=== PATIENT | male | born 1945 | race Caucasian/White ===

== ENCOUNTER 2020-05-05 08:39 | Outpatient (CLI) | payer BC, MEDICARE ==
--- NOTE | 2020-05-05 10:42 | ULT ---
EXAM: US Abdominal CLINICAL HISTORY: Low back pain. Possible kidney stone.. COMPARISON: None. FINDINGS: Pancreas: The head and body of the pancreas have a normal echotexture. The remainder the pancreas is obscured by bowel gas. IVC: Visualized IVC has a normal caliber. Aorta: Visualized aorta has a normal caliber. Liver:Normal hepatic parenchymal echotexture. No hepatic masses or intrahepatic biliary dilatation. T he contour of the hepatic margin is maintained. Right hepatic lobe measures 15.6 cm Gallbladder: No sonographic evidence of cholelithiasis, gallbladder wall thickening or pericholecysti c fluid. Sal's sign:Negative CBD: 0.75 cm common bile duct diameter. Portal vein: Patent. Appropriate directional flow. Right kidney: Normal cortical echotexture. No hydronephrosis Right kidney measuring 10.7 x 5.5 x 5. 7 cm in length. Exophytic cyst emanating from the upper pole the right kidney measures 4.4 x 4.4 x 4.7 cm. Left kidney: Normal cortical echotexture. No hydronephrosis. Calcification left renal cortex. Left kidney measuring 11.3 x 5.6 x 5.5 cm in length Spleen: Normal echotexture, measuring 10.8 cm in maximum dimension Incidental: Left pleural effusion IMPRESSION: 1. No sonographic evidence of cholelithiasis or cholecystitis 2. Common bile duct diameter acceptable for patient's age. 3. No evidence of hydronephrosis. 4. Exophytic cyst emanating from the upper pole of the right kidney. 5. Left pleural effusion.
== END 2020-05-05 08:40 | disposition home or self-care (01) ==
LOC: BICULT 08:39
PROVIDERS: ATTEND Internal Medicine
DX: M54.9 Dorsalgia, unspecified (principal); N28.1 Cyst of kidney, acquired; J90 Pleural effusion, not elsewhere classified
CPT/HCPCS: 93975

== ENCOUNTER 2020-05-10 11:30 | Outpatient (CLI) | payer BC, MEDICARE ==
--- NOTE | 2020-05-10 11:55 | RAD ---
PA AND LATERAL VIEWS CHEST: HISTORY: Left pleural effusion. Shortness of breath. FINDINGS: The heart size is normal. The aorta is tortuous. The right lung is clear. There is a moderate-size d left pleural effusion which may be loculated. No pneumothoraces are seen. IMPRESSION: Left pleural effusion. POS: AH
== END 2020-05-10 11:31 | disposition home or self-care (01) ==
LOC: BICRAD 11:30
PROVIDERS: ATTEND Internal Medicine
DX: J90 Pleural effusion, not elsewhere classified (principal)
CPT/HCPCS: 71046

== ENCOUNTER 2020-05-17 11:40 | Outpatient (CLI) | payer BC, MEDICARE ==
[~2020-05-17 11:40] MED LIST: Iopamidol 370 76% 100 ML VIAL ONE
--- NOTE | 2020-05-17 12:53 | CT ---
CHEST CT WITH CONTRAST: HISTORY: Abnormal ultrasound x-ray showed fluid in the left lung. Patient has a history of renal calculi. COMPARISON: None. CORRELATION: Stone CT 05/20/2010. FINDINGS: Lower neck and axilla: There is an incompletely evaluated hypodensity in the right thyroid lobe, edgard uring 1.2 cm. Mediastinum: No mass, lymphadenopathy or hematoma. Heart: Normal heart size. No significant epicardial fluid. Central pulmonary arteries: Adequate contrast opacification. No filling defects. Aorta: There is atherosclerosis of the aortic arch. Aorta has a normal caliber. No periaortic fat str anding. Subdiaphragmatic structures: There is a nonobstructing 2 mm calcification in the left intrarenal hubert ecting system. There appears to BE hyperplasia left adrenal gland, incompletely evaluated. There is exophytic hypodensity in the upper pole the left kidney with attenuation coefficient of 8 Hounsfield units suggesting a 5 cm cyst. Trachea and central bronchi: Patent. Pleural spaces: No right sided effusion. There is a loculated left subpulmonic pleural effusion, edgard uring 16.7 x 4.8 cm. There is atelectasis involving the left lower lobe, adjacent to the pleural effusion. Superimposed pneumonia and/or aspiration cannot be excluded. The remainder of the left lung is adequately aerated. There is adequate aeration of the right lung. Scattered emphysematous changes predominantly in the upper lobes are noted. There are no lytic or blastic lesions in the osseous structures. IMPRESSION: 1. Loculated subpulmonic effusion along the left pleural margin. There is consolidation of the left l ower lobe likely representing passive atelectasis. The possibility of superimposed aspiration and/or pneumonia cannot be entirely excluded. 2. Stable left adrenal hyperplasia. 3. Enlarging right renal cortical cyst. Transcribed Date/Time: 05/17/2020 1:13 PM
== END 2020-05-17 11:41 | disposition home or self-care (01) ==
LOC: CT 11:40
PROVIDERS: ATTEND Internal Medicine Pulmonary Disease
DX: J90 Pleural effusion, not elsewhere classified (principal); N28.1 Cyst of kidney, acquired; E27.8 Other specified disorders of adrenal gland; J18.1 Lobar pneumonia, unspecified organism
CPT/HCPCS: 71260; Q9967

== ENCOUNTER 2020-05-25 09:00 | Inpatient (IN) | payer BC, MEDICARE ==
[2020-05-26 07:23] LABS: SARS-CoV-2 PCR by NAA Not Detected (NotDetected)
[2020-05-30] MEDS ORDERED: HYDROmorphone 2 MG/ML VIAL ONE (07:47)
[2020-05-30] MEDS ORDERED: Ketamine 50 MG/ML (10ML VIAL) ONE (07:47)
[2020-05-30] MEDS ORDERED: Rocuronium Bromide 50 MG/5 ML VIAL ONE (07:48)
[2020-05-30] MEDS ORDERED: Midazolam HCl 2 mg/2 ml Vial ONE (07:48)
[2020-05-30] MEDS ORDERED: SUGAMMADEX SODIUM 200 MG/2 ML VIAL ONE (07:48)
[2020-05-30] MEDS ORDERED: Ropivacaine 0.2% HCl/PF 20 ML ONE (07:58)
[2020-05-30] MEDS ORDERED: Dexamethasone 20 MG/5 ML VIAL ONE (11:00)
[2020-05-30] MEDS ORDERED: Lidocaine 1% PF 5 ML VIAL ONE (11:00)
[2020-05-30] MEDS ORDERED: Rocuronium Bromide 10 MG/ML (10ML VIAL) ONE (11:00)
[2020-05-30] MEDS ORDERED: Succinylcholine 200 MG/10 ml SYRINGE FS ONE (11:00)
[2020-05-30] MEDS ORDERED: PROPOFOL 200 MG/20 ML VIAL ONE (11:00)
[2020-05-30] MEDS ORDERED: Promethazine HCl 25 MG/ML VIAL SLOW IVP PRN (11:09)
[2020-05-30] MEDS ORDERED: Ondansetron HCl/PF 4 MG/2 ML Vial IVP PRN (11:09)
[2020-05-30] MEDS ORDERED: Promethazine HCl 25 MG/ML VIAL IM PRN ×2 (11:09→11:15)
[2020-05-30] MEDS ORDERED: diphenhydrAMINE 25 MG CAP PO PRN (11:15)
[2020-05-30] MEDS ORDERED: diphenhydrAMINE 50 MG/ML VIAL IVP PRN (11:15)
[2020-05-30] MEDS ORDERED: Hydrocerin (Eucerin) Cream 120 gm Jar TOP PRN (11:15)
[2020-05-30] MEDS ORDERED: Naloxone HCl 0.4 mg/ml Vial IV PRN (11:15)
[2020-05-30] MEDS ORDERED: Bupivacaine 0.25% 10 ML VIAL EPIDURAL PRN (11:15)
[2020-05-30] MEDS ORDERED: HYDROcodone/Acetaminophen 5/325 mg Tablet PO PRN ×2 (11:15)
[2020-05-30] MEDS ORDERED: Ondansetron PF 4 MG/2 ML Vial IVP PRN (11:15)
[2020-05-30] MEDS ORDERED: Zolpidem Tartrate 5 MG TAB PO PRN (11:15)
[2020-05-30] MEDS ORDERED: Naloxone HCl 0.4 mg/ml Vial IVP PRN (11:15)
[2020-05-30] MEDS ORDERED: Promethazine HCl 25 MG SUPP PR PRN (11:15)
[2020-05-30] MEDS ORDERED: traMADol HCl 50 MG TAB PO PRN (11:15)
[2020-05-30] MEDS ORDERED: diphenhydrAMINE 50 MG/ML VIAL IM PRN (11:15)
[2020-05-30] MEDS ORDERED: Lidocaine 1.5% w/Epi 1:200K 30 ML VIAL (Epid Use) ONE (11:24)
[2020-05-30] MEDS ORDERED: Dextrose 5% in Water 1,000 ML IV PRN (15:20)
[2020-05-30] MEDS ORDERED: Dextrose 50% Abboject 50 ML SYRINGE SLOW IVP PRN (15:20)
[2020-05-30] MEDS ORDERED: Insulin Regular 300 UNITS/3 ML VIAL SC PRN (15:20)
[2020-05-30 15:21] VITALS: BMI 27.7
[2020-05-30] MEDS: Ketorolac Tromethamine 30 MG/ML VIAL IVP SCH ×3 (15:53→23:23)
[2020-05-30] MEDS: Lactated Ringer's 1,000 ML IV SCH ×2 (15:59→23:24)
[2020-05-30] MEDS: CEFAZOLIN 2 GM in Premix Bag 1 BAG IVPB SCH ×2 (15:59→23:24)
[2020-05-30] MEDS: Ondansetron PF 4 MG/2 ML Vial IVP PRN (17:02)
[2020-05-30] MEDS: Enoxaparin Sodium 40 MG/0.4 ML SYRINGE SC SCH (20:22)
[2020-05-31] MEDS: fentaNYL Citrate/PF 500 MCG, Bupivacaine 10 ML in Sodium Chloride 0.9% 80 ML EPIDURAL SCH ×2 (00:26→12:21)
[2020-05-31] MEDS: Ketorolac Tromethamine 30 MG/ML VIAL IVP SCH ×4 (05:27→23:16)
[2020-05-31 05:52] LABS: #Lymphocytes 1.4 thou/uL (1.20-3.40); #Monocytes 1.4 thou/uL (0.11-0.59); #Neutrophils 11.6 thou/uL (1.40-6.50); %Basophils 0.1 % (0.0-1.0); %Eosinophils 0.1 % (0.0-10.0); %Lymphocytes 9.7 % (21.0-51.0); %Monocytes 9.6 % (0.0-10.0); %Neutrophils 80.6 % (42.0-75.0); Hemoglobin 12.3 g/dL (14.0-18.0); Mean Corpuscular HGB CONC 31.5 g/dL (32.0-36.0); Mean Platelet Volume 8.1 fL (7.4-10.4); Platelet Count 304 thou/uL (130-400); RBC Distribution Width 12.5 % (11.5-14.5); Red Blood Cell (RBC) Count 4.25 mill/uL (4.70-6.10); White Blood Cell (WBC) Count 14.4 thou/uL (4.8-10.8)
[2020-05-31 06:10] LABS: Anion Gap 14 mmol/L (10-20); BUN (Urea Nitrogen) 23 mg/dL (8.4-25.7); Calc. Creatinine Clearance 99 mL/min (70-130); Calcium 8.2 mg/dL (7.8-10.44); Carbon Dioxide 23 mmol/L (23-31); Chloride 107 mmol/L (98-107); Glucose 124 mg/dL (83-110); Potassium 4.1 mmol/L (3.5-5.1); Sodium 140 mmol/L (136-145)
[2020-05-31] MEDS: CEFAZOLIN 2 GM in Premix Bag 1 BAG IVPB SCH (08:47)
[2020-05-31] MEDS ORDERED: Doxycycline 100 MG CAP PO SCH (10:00)
[2020-05-31] MEDS: Lactated Ringer's 1,000 ML IV SCH ×2 (12:28→15:15)
[2020-05-31] MEDS: Ondansetron PF 4 MG/2 ML Vial IVP PRN (15:14)
[2020-05-31] MEDS ORDERED: FLU VACC QS2020-21(65YR UP)/PF 240 MCG/0.7 ML SYRINGE IM ONE (16:15)
[2020-05-31] MEDS: Enoxaparin Sodium 40 MG/0.4 ML SYRINGE SC SCH (21:35)
[2020-05-31] MEDS: Doxycycline 100 MG CAP PO SCH (21:36)
[2020-06-01] MEDS: fentaNYL Citrate/PF 500 MCG, Bupivacaine 10 ML in Sodium Chloride 0.9% 80 ML EPIDURAL SCH (00:38)
[2020-06-01] MEDS: Ketorolac Tromethamine 30 MG/ML VIAL IVP SCH (05:23)
[2020-06-01] MEDS: Lactated Ringer's 1,000 ML IV SCH (06:07)
[2020-06-01] MEDS: Polyethylene Glycol 3350 17 GM Packet PO SCH (08:37)
[2020-06-01] MEDS: Doxycycline 100 MG CAP PO SCH ×2 (08:37→20:17)
[2020-06-01] MEDS: Bupivacaine 10 ML in Sodium Chloride 0.9% 90 ML EPIDURAL SCH (13:17)
[2020-06-01] MEDS ORDERED: Hydrochlorothiazide 25 MG TAB PO SCH (17:45)
[2020-06-01] MEDS ORDERED: Losartan 25 MG TAB PO SCH (17:45)
[2020-06-01] MEDS: Enoxaparin Sodium 40 MG/0.4 ML SYRINGE SC SCH (20:17)
[2020-06-01] MEDS: traMADol HCl 50 MG TAB PO PRN (21:54)
[2020-06-02] MEDS: Bupivacaine 10 ML in Sodium Chloride 0.9% 90 ML EPIDURAL SCH (03:29)
[2020-06-02] MEDS: traMADol HCl 50 MG TAB PO PRN ×3 (03:34→17:49)
[2020-06-02] MEDS: Doxycycline 100 MG CAP PO SCH ×2 (08:18→20:33)
[2020-06-02] MEDS: Losartan 25 MG TAB PO SCH (08:19)
[2020-06-02] MEDS: Hydrochlorothiazide 25 MG TAB PO SCH (08:19)
[2020-06-02] MEDS: Polyethylene Glycol 3350 17 GM Packet PO SCH (08:20)
[2020-06-02] MEDS ORDERED: HYDROCHLOROTHIAZIDE 12.5 MG TABLET PO SCH (09:00)
[2020-06-02] MEDS ORDERED: LOSARTAN 50 MG TABLET PO SCH (09:00)
[2020-06-02] MEDS: Acetaminophen 500 MG TAB PO PRN (14:29)
[2020-06-02] MEDS: Enoxaparin Sodium 40 MG/0.4 ML SYRINGE SC SCH (20:33)
[2020-06-03] MEDS: Acetaminophen 500 MG TAB PO PRN ×2 (00:14→14:24)
[2020-06-03 04:31] VITALS: TEMP 97.8
[2020-06-03] MEDS: traMADol HCl 50 MG TAB PO PRN ×2 (07:49→14:23)
[2020-06-03] MEDS: Losartan 25 MG TAB PO SCH (07:50)
[2020-06-03] MEDS: Hydrochlorothiazide 25 MG TAB PO SCH (07:50)
[2020-06-03] MEDS: Doxycycline 100 MG CAP PO SCH (07:50)
[2020-06-03] MEDS: Polyethylene Glycol 3350 17 GM Packet PO SCH (07:52)
[2020-06-03 16:07] VITALS: BP 168/82
== END 2020-06-03 17:06 | disposition home or self-care (01) | DRG 164 ==
LOC: SURG A 05-30 05:55 → EDSTATUS 05-30 09:00 → SURG A 05-30 15:08
PROVIDERS: ADMIT Thoracic Surgery (Cardiothoracic Vascular Surgery); ATTEND Thoracic Surgery (Cardiothoracic Vascular Surgery)
PROC: 0BNG0ZZ Release Left Upper Lung Lobe, Open Approach (ICD-10-PCS; principal; 2020-05-30)
PROC: 0W9B4ZZ Drainage of Left Pleural Cavity, Percutaneous Endoscopic Approach (ICD-10-PCS; 2020-05-30)
DX: J86.9 Pyothorax without fistula (principal); J91.8 Pleural effusion in other conditions classified elsewhere; Z20.822 Contact with and (suspected) exposure to COVID-19; R11.0 Nausea; Z28.21 Immunization not carried out because of patient refusal
CPT/HCPCS: 36415; 36416; 71045; 80048; 85025; 86850; 86900; 86901; 87070; 87106; 87205; 87635; J0690; J1100; J1170; J1650; J1885; J2001; J2250; J2405; J2704; J2795; J3010; J3490; U0003; U0005

== ENCOUNTER 2020-06-20 09:39 | Outpatient (CLI) | payer BC, MEDICARE ==
--- NOTE | 2020-06-20 10:05 | RAD ---
Frontal and lateral imaging chest: 06/20/2020 COMPARISON: 06/02/2020 HISTORY: Evaluate chest following thoracotomy FINDINGS: There is diffuse increased linear interstitial density within both lungs. The right lung ap pears clear. No pneumothorax is seen on either side. There is blunting of the costophrenic angle on the left with pleural thickening and/or small volume p leural fluid in the inferior lateral left hemithorax/left costophrenic angle, less conspicuous than on the 06/02/2020 exam. There is patchy opacity in the medial left base, similar when compared to the prior examination, and nonspecific. There is atherosclerotic calcification of the aortic arch. There is elevation of the right humeral head with remodeling of the undersurface of the acromion sugg esting right rotator cuff tear. IMPRESSION: Persistent patchy pleural and parenchymal opacity in the left base. No lobar consolidatio n or alveolar edema.
== END 2020-06-20 09:40 | disposition home or self-care (01) ==
LOC: BICRAD 09:39
PROVIDERS: ATTEND Thoracic Surgery (Cardiothoracic Vascular Surgery)
DX: J86.9 Pyothorax without fistula (principal); R91.8 Other nonspecific abnormal finding of lung field
CPT/HCPCS: 71046

== ENCOUNTER 2021-08-29 09:57 | Outpatient (CLI) | payer MEDICARE, BC | END 2021-08-29 09:58 | disposition home or self-care (01) | LOC: BICRAD 09:57 | PROVIDERS: ATTEND Internal Medicine | DX: R06.02 Shortness of breath (principal) | CPT/HCPCS: 71046 ==

== ENCOUNTER 2022-06-12 19:25 | Emergency (ER) | payer BC, MEDICARE ==
[2022-06-12] MEDS ORDERED: Ondansetron PF 4 MG/2 ML Vial ONE (20:39)
[2022-06-12] MEDS ORDERED: Fentanyl 100 MCG/2 ML VIAL ONE (20:39)
[2022-06-12] MEDS ORDERED: Ketorolac Tromethamine 30 MG/ML VIAL ONE (20:39)
[2022-06-12 22:01] LABS: #Eosinphils 0.2 thou/uL (0.0-0.7); #Lymphocytes 1.1 thou/uL (1.20-3.40); #Monocytes 0.8 thou/uL (0.11-0.59); #Neutrophils 8.6 thou/uL (1.40-6.50); %Basophils 0.4 % (0.0-1.0); %Eosinophils 1.4 % (0.0-10.0); %Lymphocytes 10.5 % (21.0-51.0); %Monocytes 7.2 % (0.0-10.0); %Neutrophils 80.4 % (42.0-75.0); Hemoglobin 13.2 g/dL (14.0-18.0); Mean Corpuscular HGB CONC 34.2 g/dL (32.0-36.0); Mean Corpuscular Hemoglobin 31.6 pg (27.0-31.0); Mean Corpuscular Volume 92.4 fl (78.0-98.0); Mean Platelet Volume 8.9 fL (7.4-10.4); Platelet Count 231 10x3/uL (130-400); RBC Distribution Width 12.3 % (11.5-14.5); Red Blood Cell (RBC) Count 4.17 mill/uL (4.70-6.10); White Blood Cell (WBC) Count 10.7 10x3/uL (4.8-10.8)
[2022-06-12 22:23] LABS: ALT (SGPT) 14 U/L (8-55); AST (SGOT) 20 U/L (5-34); Albumin 3.9 g/dL (3.4-4.8); Alkaline Phosphatase 55 U/L (40-110); Anion Gap 11 mmol/L (10-20); BUN (Urea Nitrogen) 18 mg/dL (8.4-25.7); Bilirubin, Total 0.3 mg/dL (0.2-1.2); CK (CPK) 71 U/L (30-200); Calc. Creatinine Clearance 0 mL/min (70-130); Calcium 8.5 mg/dL (7.8-10.44); Carbon Dioxide 21 mmol/L (23-31); Chloride 112 mmol/L (98-107); Estimated GFR 78; Globulin 2.7 g/dL (2.4-3.5); Glucose 133 mg/dL (83-110); Lipase 18 U/L (8-78); Potassium 3.6 mmol/L (3.5-5.1); Protein, Total 6.6 g/dL (5.8-8.1); Sodium 140 mmol/L (136-145)
[2022-06-12 22:30] LABS: Bacteria/HPF 3+ HPF (None Seen); Bilirubin Negative (Negative); Blood, Urine 3+ (Negative); Clarity Extra Turbid (Clear); Glucose, Urine (Dipstick) Normal (Negative); Ketone, Urine Negative (Negative); Leukocyte Negative Leu/uL (Negative); Nitrite Negative (Negative); Protein, Urine (Dipstick) 70 mg/dL (Neg-Trace); RBC/HPF Greater than 50 HPF (0-3); Renal Epithelial 0-3 HPF (None Seen); Specific Gravity, Urine 1.028 (1.002-1.036); Squamous Epithelial None Seen HPF (0-3); Urobilinogen Normal mg/dL (Less than 2); pH, Urine 5.5 (5.0-9.0)
== END 2022-06-12 22:54 | disposition home or self-care (01) ==
LOC: ERS 19:25
DX: N13.2 Hydronephrosis with renal and ureteral calculous obstruction (principal); E11.9 Type 2 diabetes mellitus without complications; I10 Essential (primary) hypertension
CPT/HCPCS: 36415; 74176; 80053; 81003; 81015; 82550; 83690; 85025; 96361; 96374; 96375; J1885; J2405; J3010

== ENCOUNTER 2022-12-25 10:33 | Outpatient (CLI) | payer MEDICARE, BC | END 2022-12-25 10:34 | disposition home or self-care (01) | LOC: RAD 10:33 | PROVIDERS: ATTEND Anesthesiology | DX: R06.02 Shortness of breath (principal); Z87.891 Personal history of nicotine dependence | CPT/HCPCS: 71046 ==